=== PATIENT | female | born 1970 | race Caucasian/White ===

== ENCOUNTER 2016-11-28 11:42 | Emergency (ER) | payer BC ==
--- NOTE | 2016-11-28 13:48 | UC ---
Lower Extremity/Ankle HPI - HPI Summary HPI Summary: pt presents with c/o right lower extremity tenderness, "tightness", pain with ambulation in right calf. pt has hx of dvt - History of Current Complaint Chief Complaint: UCLowerExtremity Stated Complaint: RT LEG PAIN/SWELLING Time Seen by Provider: 11/28/16 13:33 Hx Obtained From: Patient Hx Last Menstrual Period: 11/07/16 ?: No Onset/Duration: Gradual Onset, Lasting Days Severity Initially: Mild Severity Currently: Moderate Aggravating Factor(s): Ambulation Alleviating Factor(s): Rest - Risk Factors Gout Risk Factors: Age Over 40 DVT Risk Factors: Smoking, Recent Travel Septic Arthritis Risk Factor: Negative - Allergies/Home Medications Allergies/Adverse Reactions: Allergies Allergy/AdvReac Type Severity Reaction Status Date / Time No Known Allergies Allergy Verified 11/28/16 13:28 Home Medications: Home Medications Ibuprofen [Advil] 1,600 mg PO BID PRN 11/28/16 [History Confirmed 11/28/16] PMH/Surg Hx/FS Hx/Imm Hx Previously Healthy: Yes - Surgical History Surgical History: Yes Surgery Procedure, Year, and Place: TUBAL - Family History Known Family History: Positive: Cardiac Disease - Social History Occupation: Employed Full-time Alcohol Use: Weekly Alcohol Amount: Few times weekly Substance Use Type: None Smoking Status (MU): Heavy Every Day Tobacco Smoker Type: Cigarettes Amount Used/How Often: 1/2 pack per day Length of Time of Smoking/Using Tobacco: 26 yrs Have You Smoked in the Last Year: No Review of Systems Constitutional: Negative Skin: Negative Eyes: Negative ENT: Negative Respiratory: Negative Cardiovascular: Negative Gastrointestinal: Negative Genitourinary: Negative Motor: Negative Neurovascular: Negative Musculoskeletal: Calf Tenderness - right Neurological: Negative Psychological: Negative All Other Systems Reviewed And Are Negative: Yes Physical Exam Triage Information Reviewed: Yes Appearance: Well-Appearing Vital Signs: Initial Vital Signs Temp 98.3 F 11/28/16 13:23 Pulse 73 11/28/16 13:23 Resp 18 11/28/16 13:23 BP 171/102 11/28/16 13:23 Pulse Ox 100 11/28/16 13:23 Vital Signs Reviewed: Yes Eye Exam: Normal ENT Exam: Normal Neck exam: Normal Respiratory Exam: Normal Cardiovascular Exam: Normal Musculoskeletal: Positive: Other: - right calf measurement" 44.5 cm left calf: measurement: 44.3cm posterior right calf tenderness Neurological Exam: Normal Psychological Exam: Normal Skin Exam: Normal Lower Extremity Course/Dx - Course Course Of Treatment: I discussed witht he pt the results of the doppler study. I instructed the pt to go to healthcare facility of choice, [facility] for further treatment for extensive DVT in right lower extremity. Pt verbalized understanding and agreed to plan of care - Differential Dx/Diagnosis Differential Diagnosis/HQI/PQRI: DVT Provider Diagnoses: elevated blood pressure. DVT. FINDINGS: VEINS: There is occlusive thrombus of the right femoral vein extending inferiorly through. the popliteal vein and into the posterior tibial veins. The remainder of the venous system. of the right lower extremity is compressible throughout its course, with normal flow on. color Doppler imaging and normal response to augmentation on spectral Doppler imaging. - Physician Notifications Discussed Patient Care With: Dr. Edwards at [facility] Time Discussed With Above Provider: 14:30 Instructed by Provider To: Transfer - to [facility] Discharge - Discharge Plan Condition: Stable Disposition: HOME Discharge Disposition Comment: Pt was insturcted to go to [facility] ED for further treatment and evaluation Patient Education Materials: Deep Venous Thrombosis (ED) Referrals: Non Staff,Doctor [Medical Doctor] - [facility] [Outside]
--- NOTE | 2016-11-28 14:16 | RAD ---
HISTORY: Right calf swelling and tenderness COMPARISONS: None relevant TECHNIQUE: Multiple transverse and longitudinal ultrasound images were obtained of the right lower extremity from the level of the common femoral vein inferiorly through to the infrapopliteal veins using grayscale, color Doppler, and spectral Doppler imaging with and without compression and with augmentation. Comparison images were obtained of the contralateral common femoral vein. FINDINGS: VEINS: There is occlusive thrombus of the right femoral vein extending inferiorly through the popliteal vein and into the posterior tibial veins. The remainder of the venous system of the right lower extremity is compressible throughout its course, with normal flow on color Doppler imaging and normal response to augmentation on spectral Doppler imaging. SOFT TISSUES: Unremarkable. OTHER FINDINGS: None. IMPRESSION: OCCLUSIVE THROMBUS OF THE DEEP VENOUS SYSTEM OF THE RIGHT LOWER EXTREMITY
[2016-11-28 14:31] VITALS: BP 179/107
== END 2016-11-28 14:49 | disposition left against medical advice (07) ==
LOC: UCCORT 11:42
DX: I82.411 Acute embolism and thrombosis of right femoral vein (principal); R03.0 Elevated blood-pressure reading, without diagnosis of hypertension; Z86.718 Personal history of other venous thrombosis and embolism; F17.210 Nicotine dependence, cigarettes, uncomplicated
CPT/HCPCS: 99213; G0463

== ENCOUNTER 2017-01-06 19:12 | Emergency (ER) | payer BC ==
[2017-01-06 19:39] VITALS: BP 96/60
--- NOTE | 2017-01-06 20:18 | UC ---
Laceration HPI - HPI Summary HPI Summary: States she accidentally cut her right thumb with a knife when cutting sweet potatoes tonight at home approx 7pm. Last tetanus unknown. Pt is on warfarin for a DVT approx 1 month ago. States her last INR was yest 2.6. - History Of Current Complaint Chief Complaint: UCLaceration Stated Complaint: HAND LAC Time Seen by Provider: 01/06/17 20:17 Hx Obtained From: Patient Laceration Location: Hand - right thumb Mechanism Of Injury: Sharp Trauma Onset/Duration: Sudden Onset, Lasting Hours, Still Present Severity: Moderate Pain Intensity: 3 Pain Scale Used: 0-10 Numeric Aggravating Factors: Nothing Related History: Dominant Hand Right - Allergies/Home Medications Allergies/Adverse Reactions: Allergies Allergy/AdvReac Type Severity Reaction Status Date / Time No Known Allergies Allergy Verified 01/06/17 19:39 Home Medications: Home Medications Warfarin TAB(*) [Coumadin TAB(*)] 3 - 4 mg PO 1700 01/06/17 [History Confirmed 01/06/17] PMH/Surg Hx/FS Hx/Imm Hx Previously Healthy: Yes - Surgical History Surgical History: Yes Surgery Procedure, Year, and Place: TUBAL - Family History Known Family History: Positive: Cardiac Disease - Social History Occupation: Employed Full-time Lives: With Family Alcohol Use: Daily Alcohol Amount: 2 DRINKS DAILY Substance Use Type: None Smoking Status (MU): Heavy Every Day Tobacco Smoker Type: Cigarettes Amount Used/How Often: 1/2 pack per day Length of Time of Smoking/Using Tobacco: 26 yrs Have You Smoked in the Last Year: No Review of Systems Constitutional: Negative Skin: Other - thumb laceration Eyes: Negative ENT: Negative Respiratory: Negative Cardiovascular: Negative Gastrointestinal: Negative Genitourinary: Negative Motor: Negative Neurovascular: Negative Musculoskeletal: Negative Neurological: Negative Psychological: Negative All Other Systems Reviewed And Are Negative: Yes Physical Exam Triage Information Reviewed: Yes Appearance: Well-Appearing, Well-Nourished, Pain Distress Vital Signs: Initial Vital Signs Temp 97.1 F 01/06/17 19:34 Pulse 70 01/06/17 19:34 Resp 16 01/06/17 19:34 BP 96/60 01/06/17 19:34 Pulse Ox 100 01/06/17 19:34 Vital Signs Reviewed: Yes Eyes: Positive: Conjunctiva Clear ENT: Positive: Normal ENT inspection Neck: Positive: Supple Respiratory: Positive: No respiratory distress Cardiovascular: Positive: RRR, No Murmur, Pulses Normal, Brisk Capillary Refill Musculoskeletal: Positive: Strength Intact, ROM Intact Neurological: Positive: Alert, Muscle Tone Normal Psychological Exam: Normal Skin: Positive: Other - 3cm lac palmar surface right thumb Laceration Repair - Laceration Repair 1 Description: Linear Laceration Size After Repair: Length (cm) - 3, Width (mm) - 2, Depth (mm) - 2 Contamination/FB Removal: none Debridement: none Modified For Repair: No Type Injection: Local Anesthesia Used: 2.0% Lido Cleansing Completed Via Routine Prep: Yes Irrigation With Pressure Irrigation Device: Yes Closure Material: Sutures - 4-0 Closure Method: Single Layer Suture Of: Skin Suture Type: Nylon - #7 Laceration Course/Dx - Differential Dx - Laceration/Wound Differental Diagnoses: Laceration, Puncture Wound, Tendon Laceration Provider Diagnoses: right thumb laceration with sutures Discharge - Discharge Plan Condition: Stable Disposition: HOME Patient Education Materials: Laceration (ED), Care For Your Stitches (ED) Referrals: [facility] [place] [facility] [Outside] Additional Instructions: Keep your laceration clean and dry. Change the bandage daily. Use a small amount of triple antibiotic ointment. Keep the wound covered at all times. Elevate you hand to decrease swelling. Watch for infection. Seek medical attention if you have increased pain, drainage, increased redness or red streaks which would all be signs of infection. We do not routinely put people on antibiotics who have stitches placed, but if you develop infection you will need to be seen right away. Have your stitches removed in 10 days. You may return to urgent care to have them removed. Return to urgent care sooner if you develop any new or worsening symptoms.
[2017-01-06] MEDS ORDERED: Lidocaine 2% PF * 5 ML VIAL ONE (20:23)
[2017-01-06] MEDS ORDERED: Lidocaine 2% PF * 5 ML VIAL INJ ONE ×2 (20:42→20:43)
[2017-01-06] MEDS ORDERED: Tetan/Diph/Pertus SYR(Tdap)* 0.5 ML SYR(BOOSTRIX) use SYR IM ONE (21:09)
== END 2017-01-06 21:53 | disposition home or self-care (01) ==
LOC: UCCORT 19:12
DX: S61.011A Laceration without foreign body of right thumb without damage to nail, initial encounter (principal); I82.509 Chronic embolism and thrombosis of unspecified deep veins of unspecified lower extremity; W26.0XXA Contact with knife, initial encounter; Y92.9 Unspecified place or not applicable; F17.210 Nicotine dependence, cigarettes, uncomplicated; Z23 Encounter for immunization; Z79.01 Long term (current) use of anticoagulants
CPT/HCPCS: 12002; 90471; 90715; 99211; G0463

== ENCOUNTER 2017-01-20 13:06 | Emergency (ER) | payer BC ==
[2017-01-20 13:31] VITALS: BP 122/75
--- NOTE | 2017-01-20 13:34 | UC ---
HPI Wound/Suture Re-check - HPI Summary HPI Summary: TWO WEEKS AGO WAS SHARPENING KNIFE ON JAY, CUT TO RIGHT HAND. SEVEN SUTURES PLACED. NO REDNESS, NO DRAINAGE, NO DIFFICULTIES WITH LACERATION. NO FEVER. NO NUMBNESS OR CONCERNS WITH HAND MOVEMENT. - History Of Current Complaint Chief Complaint: UCGeneralIllness Stated Complaint: REMOVE STITCHES Time Seen by Provider: 01/20/17 13:07 Hx Obtained From: Patient Onset/Duration: Sudden Onset, Lasting Weeks, Resolved Severity: Mild - Allergies/Home Medications Allergies/Adverse Reactions: Allergies Allergy/AdvReac Type Severity Reaction Status Date / Time No Known Allergies Allergy Verified 01/20/17 13:27 PMH/Surg Hx/FS Hx/Imm Hx Previously Healthy: Yes - Surgical History Surgical History: Yes Surgery Procedure, Year, and Place: TUBAL - Family History Known Family History: Positive: Cardiac Disease Negative: Blood Disorder - Social History Occupation: Employed Full-time Lives: With Family Alcohol Use: Daily Alcohol Amount: 2 DRINKS DAILY Substance Use Type: None Smoking Status (MU): Heavy Every Day Tobacco Smoker Type: Cigarettes Amount Used/How Often: 1/2 pack per day Length of Time of Smoking/Using Tobacco: 26 yrs Have You Smoked in the Last Year: No Cessation Counseling: Patient Advised to Stop Review of Systems Constitutional: Negative Skin: Other - LACERATION RIGHT HAND Eyes: Negative ENT: Negative Respiratory: Negative Cardiovascular: Negative Gastrointestinal: Negative Genitourinary: Negative Motor: Negative Neurovascular: Negative Musculoskeletal: Negative Neurological: Negative Psychological: Negative All Other Systems Reviewed And Are Negative: Yes Physical Exam Triage Information Reviewed: Yes Appearance: Well-Appearing, No Pain Distress, Well-Nourished Vital Signs Reviewed: Yes Eye Exam: Normal ENT Exam: Normal Dental Exam: Normal Neck exam: Normal Respiratory Exam: Normal Respiratory: Positive: Chest non-tender, Lungs clear, Normal breath sounds, No respiratory distress Cardiovascular Exam: Normal Cardiovascular: Positive: RRR, No Murmur, Pulses Normal Abdominal Exam: Normal Musculoskeletal Exam: Normal Neurological Exam: Normal Psychological Exam: Normal Skin: Positive: Other - SUTURE REMOVAL, RIGHT HAND SEVEN SUTURES Course/Dx - Differential Dx - Laceration/Wound Differential Diagnoses: Cellulitis, Healing Wound, Suture Removal Provider Diagnoses: HEALING WOUND, SUTURE REMOVAL (#7) RIGHT HAND Discharge - Discharge Plan Condition: Stable Disposition: HOME Patient Education Materials: Stitches Removal (ED) Referrals: [facility] [place] [facility] [Outside] No Primary Care Phys,NOPCP [Primary Care Provider] - Additional Instructions: PRIMARY CARE: There are four major types of clinical preventive care: immunizations, screening , behavioral counseling (sometimes referred to as lifestyle changes), and chemoprevention. All four apply throughout the life span. It is important to establish and to have access to a Primary Care Physician, not only for follow- up regrding acute and chronic problems, but also for preventative care.
== END 2017-01-20 13:38 | disposition home or self-care (01) ==
LOC: UCCORT 13:06
DX: F17.210 Nicotine dependence, cigarettes, uncomplicated (principal); S61.411D Laceration without foreign body of right hand, subsequent encounter; W26.0XXD Contact with knife, subsequent encounter; Y92.9 Unspecified place or not applicable

== ENCOUNTER 2019-04-03 19:34 | Emergency (ER) | payer BC ==
[2019-04-03 19:52] VITALS: BP 102/68
[2019-04-03] MEDS ORDERED: Lidocaine 2% PF * 5 ML VIAL INJ ONE (20:03)
--- NOTE | 2019-04-03 20:52 | UC ---
Laceration HPI - HPI Summary HPI Summary: 48 yo female on coumadin presents with laceration to right thumb with has been briskly bleeding laceration occurred about 45 minute ago she is right handed and Td is up to date occurred when glass broke while she was doing dishes she had been drinking this PM - History Of Current Complaint Chief Complaint: UCLaceration Stated Complaint: HAND LAC Time Seen by Provider: 04/03/19 19:55 Hx Obtained From: Patient Hx Last Menstrual Period: 11/07/16 Laceration Location: Finger - right thumb Mechanism Of Injury: Sharp Trauma Onset/Duration: Sudden Onset Severity: Mild Pain Intensity: 1 Pain Scale Used: 0-10 Numeric - Allergies/Home Medications Allergies/Adverse Reactions: Allergies Allergy/AdvReac Type Severity Reaction Status Date / Time No Known Allergies Allergy Verified 04/03/19 19:47 Home Medications: Home Medications Aspirin EC TAB* [Ecotrin EC Low Dose 81 MG*] 81 mg PO DAILY 04/03/19 [History Confirmed 04/03/19] Folic Acid TAB* [Folvite TAB*] 1 mg PO DAILY 04/03/19 [History Confirmed ] Omeprazole CAP (NF) [Prilosec CAP* 20 MG] 40 mg PO DAILY 04/03/19 [History Confirmed 04/03/19] Warfarin TAB(*) [Coumadin TAB(*)] 4 mg PO DAILY 04/03/19 [History Confirmed 03/14] PMH/Surg Hx/FS Hx/Imm Hx Cardiovascular History: Deep Vein Thrombosis GI/ History: Gastroesophageal Reflux - Surgical History Surgical History: Yes Surgery Procedure, Year, and Place: Hysterectomy, Tubal - Family History Known Family History: Positive: Cardiac Disease Negative: Blood Disorder - Social History Alcohol Use: Occasionally Alcohol Amount: 2 DRINKS DAILY Substance Use Type: None Smoking Status (MU): Heavy Every Day Tobacco Smoker Type: Cigarettes Amount Used/How Often: 1/2 PPD Length of Time of Smoking/Using Tobacco: Since Age 22 Have You Smoked in the Last Year: No - Immunization History Most Recent Tetanus Shot: 01/06/17 Review of Systems All Other Systems Reviewed And Are Negative: Yes Constitutional: Positive: Negative Skin: Positive: Negative Eyes: Positive: Negative ENT: Positive: Negative Respiratory: Positive: Negative Cardiovascular: Positive: Negative Gastrointestinal: Positive: Negative Genitourinary: Positive: Negative Motor: Positive: Negative Neurovascular: Positive: Negative Musculoskeletal: Positive: Negative Neurological: Positive: Negative Psychological: Positive: Negative Physical Exam Triage Information Reviewed: Yes Appearance: Well-Appearing, No Pain Distress, Well-Nourished Vital Signs: Initial Vital Signs Temp 97.2 F 04/03/19 19:45 Pulse 97 04/03/19 19:45 Resp 17 04/03/19 19:45 BP 102/68 04/03/19 19:45 Pulse Ox 96 04/03/19 19:45 Vital Signs Reviewed: Yes Eyes: Positive: Conjunctiva Clear ENT: Positive: Hearing grossly normal, Uvula midline. Negative: Nasal congestion, Nasal drainage, Tonsillar exudate, Trismus, Muffled voice, Hoarse voice Neck: Positive: Supple, Nontender, No Lymphadenopathy Respiratory: Positive: Lungs clear, Normal breath sounds, No respiratory distress, No accessory muscle use Cardiovascular: Positive: RRR, No Murmur Musculoskeletal: Positive: ROM Intact, No Edema Neurological: Positive: Alert Psychological Exam: Normal Skin Exam: Other - see image Images Hands: 1 - curvilinear flap laceration Procedures - Sedation Patient Received Moderate/Deep Sedation with Procedure: No - Splinting Right Upper Extremity Hand-Made Type: orthoglass Splint: thumb spica Pre-Proc Neuro Vasc Exam: normal Post-Proc Neuro Vasc Exam: normal Laceration Repair - Laceration Repair 1 Description: Linear - curvilinear flap laceration with apex distally distal n/v intact Laceration Size After Repair: Length (cm) - 2.8, Width (mm) - 4, Depth (mm) - 3 Modified For Repair: No Anesthesia Used: 2.0% Lido Cleansing Completed Via Routine Prep: Yes Irrigation With Pressure Irrigation Device: Yes Closure Material: SteriStrips, Sutures Closure Method: Single Layer Suture Of: Skin Suture Type: Nylon - 12 5-0 nylon Laceration Course/Dx - Diagnosis Provider Diagnosis: Laceration of right thumb Discharge ED - Sign-Out/Discharge Documenting (check all that apply): Patient Departure All imaging exams completed and their final reports reviewed: No Studies - Discharge Plan Condition: Stable Disposition: HOME Patient Education Materials: Laceration (ED) Referrals: No Primary Care Phys,NOPCP [Primary Care Provider] - Additional Instructions: wear splint until tomorrow leave steri strips on recheck in 48 hour you have a thin flap which may not take because of your coumadin we want to recheck this in 2 days we will remove steri strips on revisit at that time we will discuss care until sutures remove sutures out in about 10 days see your provider as planned for check of PT INR - Billing Disposition and Condition Condition: STABLE Disposition: Home
--- OUTSIDE RECORDS SUMMARY | 2019-04-03 21:25 | XMS REPORT | Continuity of Care Document ---
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 Mccormack DO Onset: 2016 lower extremity Family history of breast cancer Sheri Mccormack DO Onset: 12/02/2016 Iron deficiency Sheri Mccormack DO Onset: 07/14/2017 Anemia Oncology Nurse Onset: 10/10/2017 Endometrial hyperplasia Sheri Mccormack DO Onset: 02/02/2018 History of thromboembolism of vein Sheri Mccormack DO Onset: 04/09/2018 Vitamin B deficiency Sheri Mccormack DO Onset: 04/09/2018 Vitamin D deficiency Sheri Mccormack DO Onset: 04/09/2018 Social History Type Date Description Comments Sex Unknown Tobacco Use Start: Unknown currently smokes 1/2 Pack Daily Smoking Status Reviewed: 03/24/19 currently smokes 1/2 Pack Daily ETOH Use Currently consumes alcohol socially Allergies, Adverse Reactions, Alerts Description No Known Drug Allergies Medications Active Medications SIG Qnty Indications Ordering Date Provider Warfarin Sodium take 1-4 tablets 120tabs Boufal, 08/10/2018 1mg by mouth every Sheri, DO Tablets day as directed Coumadin 1 tabl po qd 90tabs Boufal, 07/03/2018 5mg Tablets Sheri, DO Ergocalciferol 1 cap by mouth 6caps Boufal, 06/11/2018 [id number] every week Sheri, DO Capsules Omeprazole 1 by mouth every Unknown 20mg Capsules day DR Hoa Duran [place]-3 1 by mouth every Unknown 500mg day Capsules Folic Acid 1 tabl by mouth Unknown 1000mcg every day Tablets Immunizations Description No Information Available Vital Signs Date Vital Result Comment 03/18/2019 3:39pm BP Systolic 154 mmHg BP Diastolic 90 mmHg Body Temperature 98.3 F Heart Rate 79 /min Respiratory Rate 16 /min Weight 199.00 lb O2 % BldC Oximetry 99 % Pain Level 0 08/31/2018 8:06am BP Systolic 155 mmHg 155/90 manule BP Diastolic 103 mmHg 155/90 manule Body Temperature 97.8 F Heart Rate 81 /min Respiratory Rate 16 /min Weight 204.50 lb O2 % BldC Oximetry 99 % Pain Level 0 Results Test Date Facility Test Result H/L Range Note CBC 03/18/2019 [facility] White Blood 8.3 K/uL Normal 3.1-10.7 1 W/Automated [address] Count Diff [place], [place] [id number] [phone] Red Blood Count 4.34 M/uL Normal 3.90-5.40 Hemoglobin 13.9 gm/dL Normal 11.6-15.8 Hematocrit 42.3 % Normal 36.0-46.1 Mean Cell Volume 97.5 fl Normal 80.9-99.0 Mean Corpuscular HGB 32.0 pg Normal 25.9-32.7 Mean Corpuscular HGB Conc 32.9 g/dL Normal 30.8-34.3 Platelet Count 196 K/uL Normal 155-360 Red Cell Distri Width SD 51.5 fl High 36-47 Red Cell Distri Width %CV 14.2 % Normal 11.7-14.4 Mean Platelet Volume 10.7 fl Normal 8.9-12.4 Neut% 67.2 % Normal 40.4-72.8 Lymph % 23.9 % Normal 20.0-42.0 [place] % 6.8 % Normal 4.3-13.2 Eo% 1.3 % Normal 0.0-6.6 Bas% 0.4 % Normal 0.0-1.1 Immature Grans 0.4 % Normal 0.0-5.0 NRBC % 0.0 /100WBC < 10/ 100 WBC Neut# 5.55 K/uL Normal 1.8-7.0 Lymph # 1.97 K/uL Normal 1.0-4.0 [place] # 0.56 K/uL Normal 0.3-0.9 Eos # 0.11 K/uL Normal 0.0-0.5 Baso # 0.03 K/uL Normal 0.0-0.1 Immature Grans Absolute 0.03 K/uL NRBC # 0.00 K/uL Comprehensive 03/18/2019 [facility] Glucose 81 mg/dL Normal 74-106 Metabolic Panel [address] [place] [address] [phone] BUN 10 mg/dL Normal 7-18 Creatinine 0.8 mg/dL Normal 0.6-1.3 Glom Filtration Rate, Estimate >60 mL/min >60 If >60 mL/min >60 2 BUN/Creat 12.5 ratio Sodium 139 mmol/L Normal 136-145 Potassium 4.1 mmol/L Normal 3.5-5.1 Chloride 107 mmol/L Normal 98-107 Carbon Dioxide 27 mmol/L Normal 21-32 Anion Gap 5 mEq/L Low 8-16 Calcium 8.5 mg/dL Normal 8.5-10.1 Total Protein 7.0 g/dL Normal 6.4-8.2 Albumin 3.5 g/dL Normal 3.4-5.0 Globulin 3.5 g/dL Normal 1.9-4.3 Alb/Glob 1.0 ratio Bilirubin,Total 0.4 mg/dL Normal 0.2-1.0 Sgot/Ast 21 U/L Normal 15-37 SGPT/Alt 30 U/L Normal 12-78 Alkaline Phosphatase 78 U/L Normal 45-117 Laboratory test 03/18/2019 [facility] Ferritin 53 ng/mL Normal 8-252 finding [address] [place] [address] [phone] Iron-Tibc-%Sat 03/18/2019 [facility] Serum Iron 99 g/dL Normal 50-170 [address] [place] [address] [phone] Total Iron Binding Capacity 369 g/dL Normal 250-450 Transferrin %Saturation 27 % Normal 12-57 Vitamin B12 And 03/18/2019 [facility] Vitamin B12 549 pg/mL Normal 193-986 Folate [address] [place] [address] [phone] Folic Acid > 20.0 ng/mL High 3.1-17.5 Laboratory 03/18/2019 [facility] Vitamin 19.7 ng/mL Low 30.0-100.0 3 test finding [address],[place] [address] [phone] Protime 03/18/2019 [facility] Protime 22.8 High 12.0-14.[address] [place] [address] [phone] Inr 2.0 High 0.9-1.1 4 Protime 03/12/2019 [facility] Protime 24.9 seconds High 12.0-14.4 5 [address] [place] [address] [phone] Inr 2.2 High 0.9-1.1 6 Anticoagulant Therapy? YES Date of Last Dose: U Time of Last Dose: U Protime 03/05/2019 [facility] Protime 28.8 seconds High 12.0-14.4 [address] [place] [address] [phone] Inr 2.7 High 0.9-1.1 7 Anticoagulant Therapy? Unknown Protime 02/18/2019 [facility] Protime 32.3 seconds High 12.0-14.4 8 [address] [place] [address] [phone] Inr 3.1 High 0.9-1.1 9 Protime 02/04/2019 [facility] Protime 27.7 seconds High 12.0-14.4 10 [address] [place] [address] [phone] Inr 2.5 High 0.9-1.1 11 Protime 01/21/2019 [facility] Protime 29.9 seconds High 12.0-14.4 [address] [place] [address] [phone] Inr 2.8 High 0.9-1.1 12 Anticoagulant Therapy? Unknown Protime 01/08/2019 [facility] Protime 28.0 seconds High 12.0-14.4 [address] [place] [address] [phone] Inr 2.6 High 0.9-1.1 13 Protime 01/01/2019 [facility] Protime 44.3 seconds High 12.0-14.4 [address] [place] [address] [phone] Inr 4.6 High 0.9-1.1 14 Protime 12/18/2018 [facility] Protime 32.7 seconds High 12.0-14.4 [address] [place] [address] [phone] Inr 3.1 High 0.9-1.1 15 Anticoagulant Therapy? YES Date of Last Dose: U Time of Last Dose: U Protime 12/11/2018 [facility] Protime 32.7 seconds High 12.0-14.4 [address] [place] [address] [phone] Inr 3.1 High 0.9-1.1 16 Anticoagulant Therapy? Unknown Protime 12/04/2018 [facility] Protime 26.1 seconds High 12.0-14.4 [address] [place] [address] [phone] Inr 2.3 High 0.9-1.1 17 Anticoagulant Therapy? Unknown Protime 11/30/2018 [facility] Protime 21.3 seconds High 12.0-14.4 18 [address] [place] [address] [phone] Inr 1.8 High 0.9-1.1 19 Anticoagulant Therapy? YES Date of Last Dose: U Time of Last Dose: U Protime 11/23/2018 [facility] Protime 26.3 seconds High 12.0-14.4 20 [address] [place] [address] [phone] Inr 2.4 High 0.9-1.1 21 Protime 11/23/2018 [facility] Protime 32.1 seconds High 12.0-14.4 [address] [place] [address] [phone] Inr 3.0 High 0.9-1.1 22 Protime 11/12/2018 [facility] Protime 38.9 seconds High 12.0-14.4 [address] [place] [address] [phone] Inr 3.9 High 0.9-1.1 23 Anticoagulant Therapy? Unknown Protime 11/05/2018 [facility] Protime 32.8 seconds High 12.0-14.4 24 [address] [place] [address] [phone] Inr 3.1 High 0.9-1.1 25 Anticoagulant Therapy? YES Date of Last Dose: U Time of Last Dose: U Protime 10/26/2018 [facility] Protime 22.1 seconds High 12.0-14.4 26 [address] [place], [place] [id number] [phone] Inr 1.9 High 0.9-1.1 27 Protime 10/17/2018 [facility] Protime 24.8 seconds High 12.0-14.4 [address] [place], [place] [address] [phone] Inr 2.2 High 0.9-1.1 28 Protime 10/02/2018 [facility] Protime 27.5 seconds High 12.0-14.4 [address] [place] [address] [phone] Inr 2.5 High 0.9-1.1 29 Protime 09/25/2018 [facility] Protime 23.7 seconds High 12.0-14.4 [address] [place] [address] [phone] Inr 2.1 High 0.9-1.1 30 1 Z79.01 Z86.718 E61.1 E53.9 E55.9 I82.401 2 Note: Persistent reduction for 3 months or more in an eGFR <60 mL/min/1.73 m2 defines CKD. Patients with eGFR values >/=60 mL/min/1.73 m2 may also have CKD if evidence of persistent proteinuria is present. The original MDRD equation for estimated GFR is not valid for patients less than 18 years of age. Additional information may be found at www.kdoqi.org. 3 Vitamin D deficiency has been defined by the [place] of [employer] and an Endocrine Society practice guideline as a level of serum 25-OH vitamin D less than 20 ng/mL (1,2). The Endocrine Society went on to further define vitamin D insufficiency as a level between 21 and 29 ng/mL (2). 1. IOM ([place] of [employer]). 2010. Dietary reference intakes for calcium and D. [place]: The National Academies Press. 2. Sarah MF, Tony NC, Savanna SMITH, et al. Evaluation, treatment, and prevention of vitamin D deficiency: an Endocrine Society clinical practice guideline. JCEM. 2010; 96(7):1911-30. Performed at: RN - [facility] [address] [id number] Conductor Symphonic Orchestra: Nellie Garrett MD, Phone: [phone] 4 THERAPEUTIC INR RANGE: 2.0 - 3.0 DVT, Pulmonary embolus, prophylaxis against venous thrombosis or systemic embolization in high risk patients. 2.5 - 3.5 Mechanical heart valves 5 Z86.718 Z79.01 6 THERAPEUTIC INR RANGE: 2.0 - 3.0 DVT, Pulmonary embolus, prophylaxis against venous thrombosis or systemic embolization in high risk patients. 2.5 - 3.5 Mechanical heart valves 7 THERAPEUTIC INR RANGE: 2.0 - 3.0 DVT, Pulmonary embolus, prophylaxis against venous thrombosis or systemic embolization in high risk patients. 2.5 - 3.5 Mechanical heart valves 8 Z86.718,Z79.01 9 THERAPEUTIC INR RANGE: 2.0 - 3.0 DVT, Pulmonary embolus, prophylaxis against venous thrombosis or systemic embolization in high risk patients. 2.5 - 3.5 Mechanical heart valves 10 Z86.718 Z79.01 11 THERAPEUTIC INR RANGE: 2.0 - 3.0 DVT, Pulmonary embolus, prophylaxis against venous thrombosis or systemic embolization in high risk patients. 2.5 - 3.5 Mechanical heart valves 12 THERAPEUTIC INR RANGE: 2.0 - 3.0 DVT, Pulmonary embolus, prophylaxis against venous thrombosis or systemic embolization in high risk patients. 2.5 - 3.5 Mechanical heart valves 13 THERAPEUTIC INR RANGE: 2.0 - 3.0 DVT, Pulmonary embolus, prophylaxis against venous thrombosis or systemic embolization in high risk patients. 2.5 - 3.5 Mechanical heart valves 14 THERAPEUTIC INR RANGE: 2.0 - 3.0 DVT, Pulmonary embolus, prophylaxis against venous thrombosis or systemic embolization in high risk patients. 2.5 - 3.5 Mechanical heart valves 15 THERAPEUTIC INR RANGE: 2.0 - 3.0 DVT, Pulmonary embolus, prophylaxis against venous thrombosis or systemic embolization in high risk patients. 2.5 - 3.5 Mechanical heart valves 16 THERAPEUTIC INR RANGE: 2.0 - 3.0 DVT, Pulmonary embolus, prophylaxis against venous thrombosis or systemic embolization in high risk patients. 2.5 - 3.5 Mechanical heart valves 17 THERAPEUTIC INR RANGE: 2.0 - 3.0 DVT, Pulmonary embolus, prophylaxis against venous thrombosis or systemic embolization in high risk patients. 2.5 - 3.5 Mechanical heart valves 18 Z86.718/ Z79.01 19 THERAPEUTIC INR RANGE: 2.0 - 3.0 DVT, Pulmonary embolus, prophylaxis against venous thrombosis or systemic embolization in high risk patients. 2.5 - 3.5 Mechanical heart valves 20 Z86.718 Z79.01 21 THERAPEUTIC INR RANGE: 2.0 - 3.0 DVT, Pulmonary embolus, prophylaxis against venous thrombosis or systemic embolization in high risk patients. 2.5 - 3.5 Mechanical heart valves 22 THERAPEUTIC INR RANGE: 2.0 - 3.0 DVT, Pulmonary embolus, prophylaxis against venous thrombosis or systemic embolization in high risk patients. 2.5 - 3.5 Mechanical heart valves 23 THERAPEUTIC INR RANGE: 2.0 - 3.0 DVT, Pulmonary embolus, prophylaxis against venous thrombosis or systemic embolization in high risk patients. 2.5 - 3.5 Mechanical heart valves 24 Z86.718/ Z79.01 25 THERAPEUTIC INR RANGE: 2.0 - 3.0 DVT, Pulmonary embolus, prophylaxis against venous thrombosis or systemic embolization in high risk patients. 2.5 - 3.5 Mechanical heart valves 26 Z86.718 Z79.01 27 THERAPEUTIC INR RANGE: 2.0 - 3.0 DVT, Pulmonary embolus, prophylaxis against venous thrombosis or systemic embolization in high risk patients. 2.5 - 3.5 Mechanical heart valves 28 THERAPEUTIC INR RANGE: 2.0 - 3.0 DVT, Pulmonary embolus, prophylaxis against venous thrombosis or systemic embolization in high risk patients. 2.5 - 3.5 Mechanical heart valves 29 THERAPEUTIC INR RANGE: 2.0 - 3.0 DVT, Pulmonary embolus, prophylaxis against venous thrombosis or systemic embolization in high risk patients. 2.5 - 3.5 Mechanical heart valves 30 THERAPEUTIC INR RANGE: 2.0 - 3.0 DVT, Pulmonary embolus, prophylaxis against venous thrombosis or systemic embolization in high risk patients. 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 Ninoska Contreras, BOX PRESS OPERATOR 03/18/2019 E61.1 Iron deficiency Ninoska Contreras, BOX PRESS OPERATOR 03/18/2019 E53.9 Vitamin B deficiency, unspecified Ninoska Contreras, BOX PRESS OPERATOR 03/12/2019 Z86.718 Personal history of other venous thrombosis Boufal, Sheri, DO and embolism 03/12/2019 Z86.718 Personal history of other venous thrombosis Oncology Nurse and embolism 03/12/2019 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 Boufal, Sheri , DO 03/12/2019 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 Oncology Nurse 03/05/2019 Z86.718 Personal history of other venous thrombosis Boufal, Sheri, DO and embolism 03/05/2019 Z86.718 Personal history of other venous thrombosis Oncology Nurse and embolism 03/05/2019 Z79.01 [facility] (current) use of anticoagulants Boufal, Sheri , DO 03/05/2019 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 Oncology Nurse 02/18/2019 Z86.718 Personal history of other venous thrombosis Boufal, Sheri, DO and embolism 02/18/2019 Z86.718 Personal history of other venous thrombosis Oncology Nurse and embolism 02/18/2019 Z79.01 [facility] (current) use of anticoagulants Boufal, Sheri , DO 02/18/2019 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 Oncology Nurse 02/04/2019 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 Boufal, Sheri , DO 02/04/2019 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 Oncology Nurse 01/21/2019 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 Boufal, Sheri , DO 01/21/2019 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 Oncology Nurse 01/08/2019 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 Boufal, Sheri , DO 01/08/2019 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 Oncology Nurse 01/01/2019 Z79.01 [facility] (current) use of anticoagulants Boufal, Sheri , DO 01/01/2019 Z79.01 [facility] (current) use of anticoagulants Oncology Nurse 12/18/2018 Z79.01 [facility] (current) use of anticoagulants Boufal, Sheri , DO 12/18/2018 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 Oncology Nurse 12/18/2018 Z86.718 Personal history of other venous thrombosis Boufal, Sheri, DO and embolism 12/18/2018 Z86.718 Personal history of other venous thrombosis Oncology Nurse and embolism 12/11/2018 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 Boufal, Sheri , DO 12/11/2018 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 Oncology Nurse 12/11/2018 Z86.718 Personal history of other venous thrombosis Boufal, Sheri, DO and embolism 12/11/2018 Z86.718 Personal history of other venous thrombosis Oncology Nurse and embolism 12/04/2018 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 Boufal, Sheri , DO 12/04/2018 Z79.01 [facility] (current) use of anticoagulants Oncology Nurse 12/04/2018 Z86.718 Personal history of other venous thrombosis Boufal, Sheri, DO and embolism 12/04/2018 Z86.718 Personal history of other venous thrombosis Oncology Nurse and embolism 11/30/2018 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 Boufal, Sheri , DO 11/30/2018 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 Oncology Nurse 11/30/2018 Z86.718 Personal history of other venous thrombosis Boufal, Sheri, DO and embolism 11/30/2018 Z86.718 Personal history of other venous thrombosis Oncology Nurse and embolism 11/23/2018 Z86.718 Personal history of other venous thrombosis Boufal, Sheri, DO and embolism 11/23/2018 Z86.718 Personal history of other venous thrombosis Oncology Nurse and embolism 11/23/2018 Z79.01 [facility] (current) use of anticoagulants Boufal, Sheri , DO 11/23/2018 Z79.01 [facility] (current) use of anticoagulants Oncology Nurse 11/15/2018 Z86.718 Personal history of other venous thrombosis Boufal, Sheri, DO and embolism 11/15/2018 Z86.718 Personal history of other venous thrombosis Oncology Nurse and embolism 11/15/2018 Z79.01 [facility] (current) use of anticoagulants Boufal, Sheri , DO 11/15/2018 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 Oncology Nurse 11/12/2018 Z86.718 Personal history of other venous thrombosis Boufal, Sheri, DO and embolism 11/12/2018 Z86.718 Personal history of other venous thrombosis Oncology Nurse and embolism 11/12/2018 Z79.01 [facility] (current) use of anticoagulants Boufal, Sheri , DO 11/12/2018 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 Oncology Nurse 11/05/2018 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 Boufal, Sheri , DO 11/05/2018 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 Oncology Nurse 11/05/2018 Z86.718 Personal history of other venous thrombosis Boufal, Sheri, DO and embolism 11/05/2018 Z86.718 Personal history of other venous thrombosis Oncology Nurse and embolism 10/26/2018 Z86.718 Personal history of other venous thrombosis Boufal, Sheri, DO and embolism 10/26/2018 Z86.718 Personal history of other venous thrombosis Oncology Nurse and embolism 10/26/2018 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 Boufal, Sheri , DO 10/26/2018 Z79.01 [facility] (current) use of anticoagulants Oncology Nurse 10/24/2018 Z86.718 Personal history of other venous thrombosis Oncology Nurse and embolism 10/24/2018 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 Oncology Nurse 10/17/2018 Z86.718 Personal history of other venous thrombosis Boufal, Sheri, DO and embolism 10/17/2018 Z86.718 Personal history of other venous thrombosis Oncology Nurse and embolism 10/17/2018 Z79.01 [facility] (current) use of anticoagulants Boufal, Sheri , DO 10/17/2018 Z79.01 [facility] (current) use of anticoagulants Oncology Nurse 10/02/2018 Z86.718 Personal history of other venous thrombosis AshleychungSheri, DO and embolism 10/02/2018 Z86.718 Personal history of other venous thrombosis Oncology Nurse and embolism 10/02/2018 Z79.01 [facility] (current) use of anticoagulants Sheri Mccormack , DO 10/02/2018 Z79.01 [facility] (current) use of anticoagulants Oncology Nurse 09/25/2018 Z86.718 Personal history of other venous thrombosis Sheri Mccormack, DO and embolism 09/25/2018 Z86.718 Personal history of other venous thrombosis Oncology Nurse and embolism 09/25/2018 Z79.01 [facility] (current) use of anticoagulants Ksenia Sheri , DO 09/25/2018 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 She Coumadin flow sheetfor dosing [id number] Iron deficiencyComments:Patient's iron studies are stable. No intervention needed at this time.E53.9 Vitamin B deficiency, unspecifiedComments:B12 levels are stable. No intervention needed at this time. Functional Status Description No Information Available Mental Status Description No Information Available Referrals Description No Information Available
== END 2019-04-03 21:20 | disposition home or self-care (01) ==
LOC: UCCORT 19:34
DX: S61.011A Laceration without foreign body of right thumb without damage to nail, initial encounter (principal); W25.XXXA Contact with sharp glass, initial encounter; Y93.G1 Activity, food preparation and clean up; Y92.9 Unspecified place or not applicable; I82.509 Chronic embolism and thrombosis of unspecified deep veins of unspecified lower extremity; Z79.01 Long term (current) use of anticoagulants; K21.9 Gastro-esophageal reflux disease without esophagitis; F17.210 Nicotine dependence, cigarettes, uncomplicated
CPT/HCPCS: 12002; 99213; G0463

== ENCOUNTER 2019-04-05 17:17 | Emergency (ER) | payer BC ==
[2019-04-05 17:38] VITALS: BP 154/87
--- NOTE | 2019-04-05 17:57 | UC ---
HPI Wound/Suture Re-check - HPI Summary HPI Summary: 48-year-old female who received sutures to her right thumb 2 nights ago and came here for recheck. She states it has bled through the dressing mildly today but not active bleeding. - History Of Current Complaint Chief Complaint: DONNAkin Stated Complaint: RECHECK RIGHT HAND LACERATION Time Seen by Provider: 04/05/19 17:56 Hx Obtained From: Patient Hx Last Menstrual Period: 11/07/16 Onset/Duration: Gradual Onset, Other - Injury happened 2 days ago when she was washing a glass and it broke Severity: Moderate Pain Intensity: 2 - Allergies/Home Medications Allergies/Adverse Reactions: Allergies Allergy/AdvReac Type Severity Reaction Status Date / Time No Known Allergies Allergy Verified 04/05/19 17:38 PMH/Surg Hx/FS Hx/Imm Hx Previously Healthy: Yes Psychological History: Depression - Surgical History Surgical History: Yes Surgery Procedure, Year, and Place: Hysterectomy, Tubal - Family History Known Family History: Positive: Cardiac Disease Negative: Blood Disorder - Social History Alcohol Use: Occasionally Alcohol Amount: 2 DRINKS DAILY Substance Use Type: None Smoking Status (MU): Heavy Every Day Tobacco Smoker Type: Cigarettes Amount Used/How Often: 1/2 PPD Length of Time of Smoking/Using Tobacco: Since Age 22 Have You Smoked in the Last Year: No - Immunization History Most Recent Tetanus Shot: 01/06/17 Review of Systems All Other Systems Reviewed And Are Negative: Yes Skin: Positive: Other - Patient has a sutured laceration on her right thumb dorsal aspect it is not actively bleeding. Is Patient Immunocompromised?: No Physical Exam Triage Information Reviewed: Yes Appearance: Well-Appearing, No Pain Distress, Well-Nourished Vital Signs: Initial Vital Signs Temp 99.1 F 04/05/19 17:35 Pulse 84 04/05/19 17:35 Resp 16 04/05/19 17:35 BP 154/87 04/05/19 17:35 Pulse Ox 100 04/05/19 17:35 Vital Signs Reviewed: Yes Musculoskeletal: Positive: Strength Intact, ROM Intact Neurological: Positive: Alert, Muscle Tone Normal Psychological Exam: Normal Skin: Positive: Other - Numerous sutures are in place right thumb. Bleeding is controlled. No evidence of secondary skin infection. Course/Dx - Course Course Of Treatment: The area appeals to be intact, sutures are intact, no present active bleeding. A dressing was applied and the patient is going to come back in one week for suture removal or sooner if signs of infection. She does not have a primary care provider. - Diagnosis Provider Diagnosis: Encounter for re-check of laceration wound Discharge ED - Sign-Out/Discharge Documenting (check all that apply): Patient Departure All imaging exams completed and their final reports reviewed: No Studies - Discharge Plan Condition: Good Disposition: HOME Patient Education Materials: Care For Your Stitches (DC) Referrals: [facility] [Outside] No Primary Care Phys,NOPCP [Primary Care Provider] - Additional Instructions: Keep the area clean and dry. Change dressing daily. Follow-up here next Monday for suture removal or follow-up with your primary care provider or [facility] sooner if he develops signs of infection. - Billing Disposition and Condition Condition: GOOD Disposition: Home
== END 2019-04-05 18:10 | disposition home or self-care (01) ==
LOC: UCCORT 17:17
DX: S61.011D Laceration without foreign body of right thumb without damage to nail, subsequent encounter (principal); F17.210 Nicotine dependence, cigarettes, uncomplicated; W25.XXXD Contact with sharp glass, subsequent encounter
CPT/HCPCS: 99212; G0463

== ENCOUNTER 2019-04-13 15:11 | Emergency (ER) | payer BC ==
[2019-04-13 15:19] VITALS: BP 161/96
--- NOTE | 2019-04-13 15:27 | UC ---
HPI Wound/Suture Re-check - HPI Summary HPI Summary: Pt presents here with request for suture removal in rigchin thumb. Sutures were placed here on 04/03/19. Pt denies any increased redness, fever, chills or purulent discharge from wound. - History Of Current Complaint Chief Complaint: UCSkin Stated Complaint: SUTURE REMOVAL (HERE) Time Seen by Provider: 04/13/19 15:12 Hx Obtained From: Patient Hx Last Menstrual Period: 11/07/16 Onset/Duration: Sudden Onset, Still Present Severity: Moderate Pain Intensity: 1 - Allergies/Home Medications Allergies/Adverse Reactions: Allergies Allergy/AdvReac Type Severity Reaction Status Date / Time No Known Allergies Allergy Verified 04/13/19 15:19 PMH/Surg Hx/FS Hx/Imm Hx Previously Healthy: Yes - Surgical History Surgical History: Yes Surgery Procedure, Year, and Place: Hysterectomy, Tubal - Family History Known Family History: Positive: Cardiac Disease Negative: Blood Disorder - Social History Occupation: Employed Full-time Alcohol Use: Occasionally Alcohol Amount: 2 DRINKS DAILY Substance Use Type: None Smoking Status (MU): Heavy Every Day Tobacco Smoker Type: Cigarettes Amount Used/How Often: 1/2 PPD Length of Time of Smoking/Using Tobacco: Since Age 22 Have You Smoked in the Last Year: Yes - Immunization History Most Recent Tetanus Shot: 01/06/17 Vaccination Up to Date: Yes Review of Systems All Other Systems Reviewed And Are Negative: Yes Constitutional: Positive: Negative Skin: Positive: Other - sutures intact Eyes: Positive: Negative ENT: Positive: Negative Respiratory: Positive: Negative Cardiovascular: Positive: Negative Gastrointestinal: Positive: Negative Genitourinary: Positive: Negative Motor: Positive: Negative Neurovascular: Positive: Negative Musculoskeletal: Positive: Negative Neurological: Positive: Negative Psychological: Positive: Negative Is Patient Immunocompromised?: No Physical Exam Triage Information Reviewed: Yes Appearance: Well-Appearing Vital Signs: Initial Vital Signs Temp 98.7 F 04/13/19 15:17 Pulse 87 04/13/19 15:17 Resp 16 04/13/19 15:17 BP 161/96 04/13/19 15:17 Pulse Ox 100 04/13/19 15:17 Vital Signs Reviewed: Yes Eye Exam: Normal ENT Exam: Normal Dental Exam: Normal Respiratory: Positive: No respiratory distress Musculoskeletal Exam: Normal Musculoskeletal: Positive: Strength Intact, ROM Intact Neurological Exam: Normal Psychological Exam: Normal Skin Exam: Other - sutures intact, and removed without difficulty, pt tolerated well. 12 sutures removed. Course/Dx - Differential Dx - Laceration/Wound Differential Diagnoses: Suture Removal - Diagnosis Provider Diagnosis: Visit for suture removal Discharge ED - Sign-Out/Discharge Documenting (check all that apply): Patient Departure All imaging exams completed and their final reports reviewed: No Studies - Discharge Plan Condition: Stable Disposition: HOME Patient Education Materials: Stitches Removal (ED) Referrals: [facility] [Outside] No Primary Care Phys,NOPCP [Primary Care Provider] - - Billing Disposition and Condition Condition: STABLE Disposition: Home
== END 2019-04-13 15:37 | disposition home or self-care (01) ==
LOC: UCCORT 15:11
DX: S60.931D Unspecified superficial injury of right thumb, subsequent encounter (principal); F17.210 Nicotine dependence, cigarettes, uncomplicated; X58.XXXD Exposure to other specified factors, subsequent encounter